=== PATIENT | female | born 1960 | race Caucasian/White ===

== ENCOUNTER 2017-10-24 16:26 | Emergency (ER) | payer OTHER ==
[~2017-10-24] VITALS: Ht 172.7 cm; Wt 80.8 kg
[2017-10-24 16:28] VITALS: BP 169/94
[2017-10-24] MEDS ORDERED: OXYcodone/APAP 5/325MG TABLET ONE (17:22)
[2017-10-24] MEDS ORDERED: OXYcodone/APAP 5/325MG TABLET PO ONE (17:30)
== END 2017-10-24 18:11 | disposition home or self-care (01) ==
LOC: ED 18:00
DX: S42.215A Unspecified nondisplaced fracture of surgical neck of left humerus, initial encounter for closed fracture (principal); W19.XXXA Unspecified fall, initial encounter; Y93.89 Activity, other specified; Y99.8 Other external cause status; Y92.410 Unspecified street and highway as the place of occurrence of the external cause
CPT/HCPCS: 99284